=== PATIENT | male | born 1995 | race Caucasian/White ===

== ENCOUNTER 2017-05-27 15:28 | Emergency (ER) | payer OTHER ==
[2017-05-27 15:37] VITALS: BP 144/91; PULSE 84; RESP 20; TEMP 98.4; O2SAT 98
[2017-05-27] MEDS ORDERED: Silver Sulfadiazine 1% CREAM (50 gm) TOP STA (15:49)
[2017-05-27] MEDS ORDERED: Tdap Vaccine 0.5 ml Vial (10-64 yrs) IM ONE ×2 (15:49→16:33)
[2017-05-27] MEDS ORDERED: Silver Sulfadiazine 1% CREAM (50 gm) ONE (16:33)
--- NOTE | 2017-05-27 17:00 | ED PDOC ---
HPI: Skin/Bite Injury Time Seen by Provider: 05/27/17 15:42 Chief Complaint (Nursing): Burn Chief Complaint (Provider): Burn History Per: Patient Onset/Duration Of Symptoms: Mins Current Symptoms Are (Timing): Still Present Location Of Injury: Right: Abdomen, Left: Abdomen Quality Of Symptoms: Painful Pain Scale Rating Of: 6 Additional Complaint(s): 22 y/o male presents to the ED for abdominal burn. Patient was at work when he spilt boiling water on his abdomen prior to arrival. He complains of localized abdominal pain on a scale of 6 out of 10. Patient denies taking any medication for pain. Of note, patient is unaware of his last tetanus shot. PMD: None provided Past Medical History Reviewed: Historical Data, Nursing Documentation, Vital Signs Vital Signs: Last Vital Signs Temp 98.4 F 05/27/17 15:35 Pulse 84 05/27/17 15:35 Resp 20 05/27/17 15:35 BP 144/91 H 05/27/17 15:35 Pulse Ox 98 05/27/17 17:36 - Medical History PMH: No Chronic Diseases - Surgical History Surgical History: No Surg Hx - Family History Family History: States: Unknown Family Hx - Social History Current smoker - smoking cessation education provided: No Ex-Smoker (has not smoked in the last 12 months): No Alcohol: None Drugs: Denies - Immunization History Hx Tetanus Toxoid Vaccination: No - Home Medications Home Medications: Ambulatory Orders Medication Instructions Recorded Penicillin VK [Pen-Vee K] 500 mg PO QID #28 tab 06/15/15 Ibuprofen [Motrin Tab] 800 mg PO Q6H PRN #20 tab 05/27/17 Silver Sulfadiazine 1% 20 gm 1 ea TOP BID #2 tube 05/27/17 [Silvadene] - Allergies Allergies/Adverse Reactions: Allergies Allergy/AdvReac Type Severity Reaction Status Date / Time No Known Allergies Allergy Verified 05/27/17 15:35 Review of Systems ROS Statement: Except As Marked, All Systems Reviewed And Found Negative Gastrointestinal: Positive for: Abdominal Pain (caused by boiling water) Skin: Positive for: Other (abdominal burn) Physical Exam - Reviewed Nursing Documentation Reviewed: Yes Vital Signs Reviewed: Yes - Physical Exam Appears: Positive for: Well, Non-toxic, No Acute Distress Head Exam: Positive for: ATRAUMATIC, NORMAL INSPECTION, NORMOCEPHALIC Skin: Negative for: Normal Color (Abdominal burn is 3% of skin) Eye Exam: Positive for: EOMI, Normal appearance, PERRL ENT: Positive for: Normal ENT Inspection Neck: Positive for: Normal, Painless ROM, Supple Cardiovascular/Chest: Positive for: Regular Rate, Rhythm. Negative for: Murmur Respiratory: Positive for: Normal Breath Sounds. Negative for: Respiratory Distress Gastrointestinal/Abdominal: Positive for: Tenderness (8x5 cm area of erythema with central blister which is not intact) Back: Positive for: Normal Inspection. Negative for: L CVA Tenderness, R CVA Tenderness, Vertebral Tenderness Extremity: Positive for: Normal ROM. Negative for: Pedal Edema, Deformity Neurologic/Psych: Positive for: Alert, Oriented (x3). Negative for: Motor/ Sensory Deficits - ECG O2 Sat by Pulse Oximetry: 98 (RA) Pulse Ox Interpretation: Normal Medical Decision Making Medical Decision Making: Time: 15:35 Plan: * Motrin 600 mg PO * Tetanus vaccine administered Applied telfa non-stick dressing with silvadine to abdomen. Scribe Attestation: Documented by Malena Mayer acting as a scribe Zainab Phan PA-C. MD Scribe Attestation: All medical record entries made by the Scribe were at my direction and personally dictated by me. I have reviewed the chart and agree that the record accurately reflects my personal performance of the history, physical exam, medical decision making, and the department course for this patient. I have also personally directed, reviewed, and agree with the discharge instructions and disposition. Disposition - Clinical Impression Clinical Impression: Burn injury - Patient ED Disposition Is Patient to be Admitted: No Counseled Patient/Family Regarding: Diagnosis, Need For Followup, Rx Given - Disposition Disposition: Routine/Home Disposition Time: 16:59 Condition: GOOD Prescriptions: Ibuprofen [Motrin Tab] 800 mg PO Q6H PRN #20 tab PRN Reason: Pain Silver Sulfadiazine 1% 20 gm [Silvadene] 1 ea TOP BID #2 tube Instructions: Skin Lin Forms: [facility] (Bengali), [facility] ED School/Work Excuse
== END 2017-05-27 17:12 | disposition home or self-care (01) ==
LOC: H.ER 15:28
DX: T21.22XA Burn of second degree of abdominal wall, initial encounter (principal); X12.XXXA Contact with other hot fluids, initial encounter; Y99.0 Civilian activity done for income or pay